=== PATIENT | male | born 1945 | race Caucasian/White ===

== ENCOUNTER → 2017-03-07 | Outpatient (CLI) | payer MEDICARE, OTHER ==
[~2017-03-07] MED LIST: ALBU6.7H4 IH; ASPI-730 PO; AZIT250T6 PO; FERR324T6 PO; FLUT1DIS3 ORAL INH; FURO-154 PO; IPRA12.9 INH; LEVO120C PO; NEBI10TA PO; PRED50TA PO; RABE20TA23 PO; SENN-125 PO; SIMV40TA82 PO; SITA1TAB2 PO; SUCR1ORA3 PO; TAMS0.4C46 PO; VITA150T PO; [UNRECOGNIZED DRUG - CODE] PO
[2017-03-07 10:57] LABS: BASOPHILS % (AUTO) 0.2 % (0-2); EOSINOPHILS # (AUTO) 0.2 T/MM3 (0-0.5); EOSINOPHILS % (AUTO) 1.5 % (0-4); HCT - HEMATOCRIT 42.3 % (41-53); HGB - HEMOGLOBIN 13.7 GM/DL (13.5-17.5); IMMATURE GRANULOCYTE # (AUTO) 0.08 T/MM3 (0.00-0.03); IMMATURE GRANULOCYTE % (AUTO) 0.6 % (0.0-0.5); LYMPHOCYTES # (AUTO) 1.1 T/MM3 (1-4.8); LYMPHOCYTES % (AUTO) 7.6 % (23-45); MEAN CORPUSCULAR HGB 27.1 UUG (26-34); MEAN CORPUSCULAR HGB CONC(MCHC 32.4 GM/DL (31-37); MEAN CORPUSCULAR VOLUME 83.8 UM3 (80-100); MEAN PLATELET VOLUME 9.5 UM3 (9.4-12.4); MONOCYTES # (AUTO) 1.1 T/MM3 (0-0.8); MONOCYTES % (AUTO) 7.5 % (0-9.0); NEUTROPHILS #(AUTO)-ABSOLUTE 11.7 T/MM3 (1.8-7.7); NEUTROPHILS % (AUTO) 82.6 % (33-66); RED BLOOD COUNT 5.05 M/MM3 (4.50-5.90); WBC - WHITE BLOOD COUNT 14.2 T/MM3 (4.5-11.0)
--- NOTE | 2017-03-07 12:06 | DI ---
Indication: ITS.REASON: J44.1 COPD WITH ACUTE EXACERBATION Procedure: CHEST, PA LATERAL: Encounter: Initial Comparison: 07/18/2016, 05/10/2016 Technique: PA and lateral radiographs of the chest were obtained. Findings: Lungs and airways: Mildly increased lung volumes consistent with reported history of COPD. Grossly unchanged left basilar fibrosis/scarring. No new focal airspace consolidation. Calcified granulomas. Normal pulmonary vasculature. Pleura: No pleural effusion or pneumothorax. Heart and mediastinum: Cardiomegaly. Aortic atherosclerosis. Osseous structures and soft tissues: No acute osseous abnormality is seen. Degenerative disc disease of the thoracic spine. Impression: Unchanged left basilar fibrosis/scarring with no acute cardiopulmonary process appreciated. .
== END ==
LOC: IMA 10:32
PROVIDERS: ATTEND Family Medicine
DX: J44.1 Chronic obstructive pulmonary disease with (acute) exacerbation (principal)
CPT/HCPCS: 36416; 85025

== ENCOUNTER → 2017-03-10 | Outpatient (CLI) | payer MEDICARE, OTHER ==
[2017-03-10 09:14] LABS: BASOPHILS % (AUTO) 0.3 % (0-2); EOSINOPHILS # (AUTO) 0.1 T/MM3 (0-0.5); EOSINOPHILS % (AUTO) 0.7 % (0-4); HCT - HEMATOCRIT 44.9 % (41-53); HGB - HEMOGLOBIN 14.4 GM/DL (13.5-17.5); IMMATURE GRANULOCYTE # (AUTO) 0.03 T/MM3 (0.00-0.03); IMMATURE GRANULOCYTE % (AUTO) 0.3 % (0.0-0.5); LYMPHOCYTES # (AUTO) 1.3 T/MM3 (1-4.8); LYMPHOCYTES % (AUTO) 11.2 % (23-45); MEAN CORPUSCULAR HGB CONC(MCHC 32.1 GM/DL (31-37); MEAN CORPUSCULAR VOLUME 84.1 UM3 (80-100); MEAN PLATELET VOLUME 9.4 UM3 (9.4-12.4); MONOCYTES # (AUTO) 0.6 T/MM3 (0-0.8); MONOCYTES % (AUTO) 4.8 % (0-9.0); NEUTROPHILS #(AUTO)-ABSOLUTE 9.9 T/MM3 (1.8-7.7); NEUTROPHILS % (AUTO) 82.7 % (33-66); RED BLOOD COUNT 5.34 M/MM3 (4.50-5.90)
--- NOTE | 2017-03-10 09:41 | DI ---
INDICATION: ITS.REASON: J18.9 PNEUMONIA PROCEDURE: CHEST 2-VIEWS UPRIGHT (PA \T\ LAT) Encounter: Initial COMPARISON: Chest x-rays dated March 07, 2017 and July 18, [address] dated September 15, 2016 FINDINGS: Chronic left lower lobe abnormality with evidence of scarring and pleural thickening. This is unchanged from prior studies. Right lung is stable and clear. No pneumothorax or pleural effusion. Heart size and mediastinal contours are stable. Pulmonary vascularity is unchanged. Impression: No focal pneumonia. Chronic left basilar pleural scarring and thickening. .
== END ==
LOC: IMA 08:58
PROVIDERS: ATTEND Family Medicine
DX: J18.9 Pneumonia, unspecified organism (principal)
CPT/HCPCS: 36415; 85025